=== PATIENT | male | born 1940 | race Caucasian/White ===

== ENCOUNTER 2019-10-28 19:04 | Inpatient (IN) | payer OTHER ==
[~2019-10-28] VITALS: Ht 175.3 cm; Wt 68.9 kg
[2019-10-28 19:30] VITALS: BP_SYST 155
[2019-10-28] MEDS ORDERED: NACL 0.9% 1,000 ML IV ONE (21:02)
[2019-10-28 21:37] LABS: BASOPHILS % (AUTO) 0.6 % (0.0-2.0); EOSINOPHILS # (AUTO) 0.4 K/uL (0.0-0.4); EOSINOPHILS % (AUTO) 8.5 % (0.0-4.0); HEMATOCRIT 36.3 % (36-54); HEMOGLOBIN 12.5 g/dL (14.0-18.0); LYMPHOCYTES # (AUTO) 1.3 K/uL (1.0-5.5); LYMPHOCYTES % (AUTO) 26.6 % (20.5-51.5); MEAN CORPUSCULAR HEMOGLOBIN 32 pg (27-31); MEAN CORPUSCULAR HGB CONC 35 % (32-36); MEAN CORPUSCULAR VOLUME 92 fL (79.0-98.0); MONOCYTES # (AUTO) 0.4 K/uL (0.0-1.0); MONOCYTES % (AUTO) 8.9 % (1.7-9.3); NEUTROPHILS # (AUTO) 2.6 K/uL (1.8-7.7); NEUTROPHILS % (AUTO) 55.4 % (40.0-70.0); RED BLOOD CELL COUNT(AUTO) 3.93 MIL/uL (4.2-6.2); WHITE BLOOD COUNT (AUTO) 4.8 K/uL (4.8-10.8)
[2019-10-28 21:49] LABS: ANION GAP 6 (5-15); CALCIUM 8.9 mg/dL (8.4-11.0); CHLORIDE 106 mmol/L (98-107); GLUCOSE 132 mg/dL (70-99); POTASSIUM 3.1 mmol/L (3.5-5.1); SODIUM SERUM 143 mmol/L (136-145); UREA NITROGEN, BLOOD 28 mg/dL (8-21)
[2019-10-28 22:03] LABS: ALANINE AMINOTRANSFERASE 26 U/L (12-78); ALBUMIN 3.4 g/dL (3.4-4.8); ASPARTATE AMINOTRANSFERASE 41 U/L (10-37); THYROID STIMULATING HORMONE 1.66 uIu/mL (0.36-3.74); TOTAL BILIRUBIN 1.2 mg/dL (0.0-1.0)
[2019-10-28 22:06] LABS: INR 1.2 (0.80-1.20); PROTHROMBIN TIME 11.8 SECS (9.5-12.5)
[2019-10-28 22:07] LABS: PLATELET COUNT (AUTO) 98 K/uL (130-430)
[2019-10-28] MEDS ORDERED: POTASSIUM CHLORIDE 20 MEQ TAB.PRT.SR PO ONE (22:15)
[2019-10-28] MEDS ORDERED: ASPIRIN 81 MG TAB.CHEW PO ONE (22:15)
[2019-10-28 22:58] LABS: BILIRUBIN,URINE NEGATIVE (NEGATIVE); BLOOD, URINE NEGATIVE (NEGATIVE); CLARITY/URINE CLEAR (CLEAR); COLOR,URINE YELLOW (YELLOW); GLUCOSE,URINE NEGATIVE (NEGATIVE); KETONES,URINE NEGATIVE (NEGATIVE); LEUKOCYTE ESTERASE ,URINE NEGATIVE (NEGATIVE); NITRITE, URINE NEGATIVE (NEGATIVE); PH,URINE 6.5 (5.0-8.0); PROTEIN URINE NEGATIVE (NEGATIVE); UROBILINOGEN,URINE 0.2 (0.2-1.0)
[2019-10-28 23:04] LABS: BARBITURATE, URINE NEGATIVE (NEG <=200); BENZODIAZEPINE, URINE NEGATIVE (NEG <=150); CANNABINOID, URINE NEGATIVE (NEG <=50); COCAINE, URINE NEGATIVE (NEG <=150); METHAMPHETAMINES SCREEN,URINE NEGATIVE (NEG <=500); OPIATE, URINE NEGATIVE (NEG <=100); PHENCYCLIDINE SCREEN,URINE NEGATIVE (NEG <=25); URINE AMPHETAMINE NEGATIVE (NEG <=500); URINE METHADONE NEGATIVE (NEG <=200); URINE OXYCODONE SCREEN NEGATIVE (NEG <=100); URINE PROPOXYPHENE SCREEN NEGATIVE (NEG <=300)
[2019-10-28 23:05] LABS: UR TRICYCLIC ANTIDEPRESSANTS POSITIVE (NEG <=300)
[2019-10-28] MEDS ORDERED: CARV3.1246 PO (23:22)
[2019-10-28] MEDS ORDERED: MULT-1117 PO (23:23)
[2019-10-28] MEDS ORDERED: AMLO5TAB4 PO (23:23)
[2019-10-28] MEDS ORDERED: DONE5TAB33 PO (23:24)
[2019-10-28] MEDS ORDERED: ASPI-1153 PO (23:24)
[2019-10-28] MEDS ORDERED: MEMA5TAB PO (23:28)
[2019-10-28] MEDS ORDERED: ATOR40TA68 PO (23:32)
[2019-10-28] MEDS ORDERED: QUET50TA PO (23:33)
[2019-10-28] MEDS ORDERED: METH113C20 TP (23:33)
[2019-10-29 01:14] VITALS: BP_SYST 137
[2019-10-29] MEDS: D5/0.45 NS 1,000 ML IV SCH ×2 (01:54→15:19)
[2019-10-29 09:52] LABS: BASOPHILS % (AUTO) 0.5 % (0.0-2.0); EOSINOPHILS # (AUTO) 0.4 K/uL (0.0-0.4); EOSINOPHILS % (AUTO) 7.8 % (0.0-4.0); HEMATOCRIT 37.3 % (36-54); HEMOGLOBIN 12.8 g/dL (14.0-18.0); LYMPHOCYTES # (AUTO) 1.4 K/uL (1.0-5.5); LYMPHOCYTES % (AUTO) 26.6 % (20.5-51.5); MEAN CORPUSCULAR HEMOGLOBIN 32 pg (27-31); MEAN CORPUSCULAR HGB CONC 34 % (32-36); MEAN CORPUSCULAR VOLUME 92 fL (79.0-98.0); MONOCYTES # (AUTO) 0.6 K/uL (0.0-1.0); MONOCYTES % (AUTO) 11.7 % (1.7-9.3); NEUTROPHILS # (AUTO) 2.9 K/uL (1.8-7.7); NEUTROPHILS % (AUTO) 53.4 % (40.0-70.0); PLATELET COUNT (AUTO) 95 K/uL (130-430); RED BLOOD CELL COUNT(AUTO) 4.04 MIL/uL (4.2-6.2); RED CELL DISTRIBUTION WIDTH 16.1 % (9.0-15.0); WHITE BLOOD COUNT (AUTO) 5.4 K/uL (4.8-10.8)
[2019-10-29 09:54] LABS: ALANINE AMINOTRANSFERASE 26 U/L (12-78); ALBUMIN 3.2 g/dL (3.4-4.8); ANION GAP 4 (5-15); ASPARTATE AMINOTRANSFERASE 47 U/L (10-37); CALCIUM 8.7 mg/dL (8.4-11.0); CHLORIDE 109 mmol/L (98-107); CREATININE 1.03 mg/dL (0.55-1.30); GLUCOSE 115 mg/dL (70-99); POTASSIUM 3.3 mmol/L (3.5-5.1); SODIUM SERUM 145 mmol/L (136-145); THYROID STIMULATING HORMONE 1.92 uIu/mL (0.36-3.74); TOTAL BILIRUBIN 1.2 mg/dL (0.0-1.0); UREA NITROGEN, BLOOD 21 mg/dL (8-21)
[2019-10-29 10:23] LABS: CHOLESTEROL 88 mg/dL (<200); HDL CHOLESTEROL 45 mg/dL (>45); LDL CHOLESTEROL 38 mg/dL (<100); TRIGLYCERIDES 46 mg/dL (30-150)
[2019-10-29] MEDS ORDERED: *LOVENOX 1MG/KG Q12H/PHARMACY XX PRN (12:30)
[2019-10-29] MEDS ORDERED: ENOXAPARIN SODIUM 60 MG/0.6 ML SYRINGE SUBCUT ONE (13:00)
[2019-10-29 16:00] VITALS: BP_SYST 155
[2019-10-29] MEDS ORDERED: POTASSIUM CHLORIDE 20 MEQ TAB.PRT.SR PO ONE (16:15)
[2019-10-29] MEDS: DIPHENHYDRAMINE HCL 25 MG CAPSULE PO PRN (17:02)
[2019-10-29] MEDS: METHYL SALICYLE/MENTHOL 28 GM OINT..GM. TP SCH (18:00)
[2019-10-29 20:14] VITALS: BP_SYST 149
[2019-10-29] MEDS: QUEtiapine FUMARATE 25 MG TABLET PO SCH (20:15)
[2019-10-29] MEDS: ENOXAPARIN SODIUM 60 MG/0.6 ML SYRINGE SUBCUT SCH (20:15)
[2019-10-29] MEDS: CARVEDILOL 3.125 MG TABLET (COREG) PO SCH (20:16)
[2019-10-29] MEDS: PREDNISONE 20 MG TABLET PO SCH (20:33)
[2019-10-29] MEDS ORDERED: LORazepam 2 MG/ML VIAL IVP PRN (21:00)
[2019-10-29] MEDS ORDERED: LORazepam 2 MG/ML VIAL ONE (21:16)
[2019-10-30] MEDS: DIPHENHYDRAMINE HCL 25 MG CAPSULE PO PRN ×3 (00:16→20:50)
[2019-10-30 00:41] VITALS: BP_SYST 155
[2019-10-30 06:56] LABS: CALCIUM 8.7 mg/dL (8.4-11.0); CHLORIDE 106 mmol/L (98-107); CREATININE 0.98 mg/dL (0.55-1.30); GLUCOSE 133 mg/dL (70-99); POTASSIUM 3.4 mmol/L (3.5-5.1); SODIUM SERUM 138 mmol/L (136-145); UREA NITROGEN, BLOOD 17 mg/dL (8-21)
[2019-10-30 06:57] LABS: ANION GAP < 3 (5-15)
[2019-10-30 07:07] LABS: BASOPHILS % (AUTO) 0.5 % (0.0-2.0); EOSINOPHILS % (AUTO) 0.7 % (0.0-4.0); HEMATOCRIT 36.7 % (36-54); HEMOGLOBIN 13.1 g/dL (14.0-18.0); LYMPHOCYTES # (AUTO) 0.9 K/uL (1.0-5.5); LYMPHOCYTES % (AUTO) 17.6 % (20.5-51.5); MEAN CORPUSCULAR HEMOGLOBIN 33 pg (27-31); MEAN CORPUSCULAR HGB CONC 36 % (32-36); MEAN CORPUSCULAR VOLUME 92 fL (79.0-98.0); MONOCYTES # (AUTO) 0.1 K/uL (0.0-1.0); MONOCYTES % (AUTO) 2.7 % (1.7-9.3); NEUTROPHILS % (AUTO) 78.5 % (40.0-70.0); PLATELET COUNT (AUTO) 106 K/uL (130-430); RED BLOOD CELL COUNT(AUTO) 3.99 MIL/uL (4.2-6.2); RED CELL DISTRIBUTION WIDTH 16.2 % (9.0-15.0)
[2019-10-30 07:26] VITALS: BP_SYST 129
[2019-10-30] MEDS: PREDNISONE 20 MG TABLET PO SCH ×3 (09:36→20:51)
[2019-10-30] MEDS: ATORVASTATIN 20 MG TABLET PO SCH (09:36)
[2019-10-30] MEDS: DONEPEZIL HCL 5 MG TABLET (ARICEPT) PO SCH (09:36)
[2019-10-30] MEDS: MULTIVITAMINS TAB 1 TABLET PO SCH (09:36)
[2019-10-30] MEDS: CARVEDILOL 3.125 MG TABLET (COREG) PO SCH ×2 (09:38→20:51)
[2019-10-30] MEDS: ASPIRIN 81 MG TABLET(ECOTRIN) PO SCH (09:39)
[2019-10-30] MEDS: amLODIPine BESYLATE 5 MG TABLET PO SCH (09:39)
[2019-10-30] MEDS: ENOXAPARIN SODIUM 60 MG/0.6 ML SYRINGE SUBCUT SCH ×2 (09:40→20:52)
[2019-10-30] MEDS ORDERED: PRAMOXINE HCL/CALAMINE 180 ML LOTION TP PRN (11:15)
[2019-10-30 12:01] VITALS: BP_SYST 128
[2019-10-30 16:25] VITALS: BP_SYST 145
[2019-10-30] MEDS: METHYL SALICYLE/MENTHOL 28 GM OINT..GM. TP SCH (17:28)
[2019-10-30 20:44] VITALS: BP_SYST 136
[2019-10-30] MEDS: QUEtiapine FUMARATE 25 MG TABLET PO SCH (20:50)
[2019-10-31 00:29] VITALS: BP_SYST 114
[2019-10-31 08:00] VITALS: BP_SYST 133
[2019-10-31] MEDS: ATORVASTATIN 20 MG TABLET PO SCH (08:29)
[2019-10-31] MEDS: MULTIVITAMINS TAB 1 TABLET PO SCH (08:29)
[2019-10-31] MEDS: CARVEDILOL 3.125 MG TABLET (COREG) PO SCH ×3 (08:30→20:52)
[2019-10-31] MEDS: DONEPEZIL HCL 5 MG TABLET (ARICEPT) PO SCH (08:30)
[2019-10-31] MEDS: ASPIRIN 81 MG TABLET(ECOTRIN) PO SCH (08:30)
[2019-10-31] MEDS: amLODIPine BESYLATE 5 MG TABLET PO SCH (08:30)
[2019-10-31] MEDS: PREDNISONE 20 MG TABLET PO SCH ×4 (08:30→20:53)
[2019-10-31] MEDS: ENOXAPARIN SODIUM 60 MG/0.6 ML SYRINGE SUBCUT SCH ×3 (08:31→20:53)
[2019-10-31 12:00] VITALS: BP_SYST 139
[2019-10-31 16:11] VITALS: BP_SYST 144
[2019-10-31] MEDS: METHYL SALICYLE/MENTHOL 28 GM OINT..GM. TP SCH (18:33)
[2019-10-31 20:00] VITALS: BP_SYST 166
[2019-10-31] MEDS: LORazepam 1 MG TABLET PO PRN (20:40)
[2019-10-31] MEDS: QUEtiapine FUMARATE 25 MG TABLET PO SCH ×2 (20:40→20:53)
[2019-10-31 23:46] VITALS: BP_SYST 148
[2019-11-01 08:00] VITALS: BP_SYST 113
[2019-11-01] MEDS: MULTIVITAMINS TAB 1 TABLET PO SCH (08:51)
[2019-11-01] MEDS: amLODIPine BESYLATE 5 MG TABLET PO SCH (08:52)
[2019-11-01] MEDS: ASPIRIN 81 MG TABLET(ECOTRIN) PO SCH (08:52)
[2019-11-01] MEDS: ATORVASTATIN 20 MG TABLET PO SCH (08:53)
[2019-11-01] MEDS: CARVEDILOL 3.125 MG TABLET (COREG) PO SCH ×2 (08:53→20:08)
[2019-11-01] MEDS: PREDNISONE 20 MG TABLET PO SCH ×3 (08:53→20:04)
[2019-11-01] MEDS: DONEPEZIL HCL 5 MG TABLET (ARICEPT) PO SCH (08:53)
[2019-11-01] MEDS: ENOXAPARIN SODIUM 60 MG/0.6 ML SYRINGE SUBCUT SCH ×2 (08:54→20:09)
[2019-11-01 12:00] VITALS: BP_SYST 149
[2019-11-01 15:52] VITALS: BP_SYST 133
[2019-11-01 17:09] LABS: BASOPHILS % (AUTO) 0.2 % (0.0-2.0); EOSINOPHILS % (AUTO) 0.1 % (0.0-4.0); HEMATOCRIT 41.4 % (36-54); HEMOGLOBIN 13.7 g/dL (14.0-18.0); LYMPHOCYTES % (AUTO) 10.2 % (20.5-51.5); MEAN CORPUSCULAR HEMOGLOBIN 31 pg (27-31); MEAN CORPUSCULAR HGB CONC 33 % (32-36); MEAN CORPUSCULAR VOLUME 94 fL (79.0-98.0); MONOCYTES # (AUTO) 0.5 K/uL (0.0-1.0); MONOCYTES % (AUTO) 5.1 % (1.7-9.3); NEUTROPHILS # (AUTO) 8.2 K/uL (1.8-7.7); NEUTROPHILS % (AUTO) 84.4 % (40.0-70.0); PLATELET COUNT (AUTO) 129 K/uL (130-430); RED CELL DISTRIBUTION WIDTH 16.3 % (9.0-15.0); WHITE BLOOD COUNT (AUTO) 9.7 K/uL (4.8-10.8)
[2019-11-01 17:19] LABS: ANION GAP 7 (5-15); CALCIUM 9.2 mg/dL (8.4-11.0); CHLORIDE 107 mmol/L (98-107); CREATININE 1.22 mg/dL (0.55-1.30); GLUCOSE 128 mg/dL (70-99); SODIUM SERUM 144 mmol/L (136-145); UREA NITROGEN, BLOOD 45 mg/dL (8-21)
[2019-11-01] MEDS: METHYL SALICYLE/MENTHOL 28 GM OINT..GM. TP SCH (17:24)
[2019-11-01 19:50] VITALS: BP_SYST 130
[2019-11-01] MEDS: QUEtiapine FUMARATE 25 MG TABLET PO SCH (20:04)
[2019-11-01] MEDS: DIPHENHYDRAMINE HCL 25 MG CAPSULE PO PRN (20:04)
[2019-11-02 08:00] VITALS: BP_SYST 156
[2019-11-02] MEDS: CARVEDILOL 3.125 MG TABLET (COREG) PO SCH ×2 (09:00→23:32)
[2019-11-02] MEDS: amLODIPine BESYLATE 5 MG TABLET PO SCH (09:00)
[2019-11-02 12:27] VITALS: BP_SYST 120
[2019-11-02] MEDS: ASPIRIN 81 MG TABLET(ECOTRIN) PO SCH (14:00)
[2019-11-02] MEDS: DIPHENHYDRAMINE HCL 25 MG CAPSULE PO PRN (14:00)
[2019-11-02] MEDS: DONEPEZIL HCL 5 MG TABLET (ARICEPT) PO SCH (14:00)
[2019-11-02] MEDS: PREDNISONE 20 MG TABLET PO SCH ×3 (14:00→23:31)
[2019-11-02] MEDS: MULTIVITAMINS TAB 1 TABLET PO SCH (14:00)
[2019-11-02] MEDS: ATORVASTATIN 20 MG TABLET PO SCH (14:01)
[2019-11-02] MEDS: ENOXAPARIN SODIUM 60 MG/0.6 ML SYRINGE SUBCUT SCH ×2 (14:02→23:38)
[2019-11-02 16:08] VITALS: BP_SYST 139
[2019-11-02] MEDS: METHYL SALICYLE/MENTHOL 28 GM OINT..GM. TP SCH (18:00)
[2019-11-02 20:03] VITALS: BP_SYST 145
[2019-11-02] MEDS: QUEtiapine FUMARATE 25 MG TABLET PO SCH (23:32)
[2019-11-02] MEDS: LORazepam 1 MG TABLET PO PRN (23:32)
[2019-11-03 01:00] VITALS: BP_SYST 126
[2019-11-03 08:00] VITALS: BP_SYST 141
[2019-11-03] MEDS: DONEPEZIL HCL 5 MG TABLET (ARICEPT) PO SCH (09:23)
[2019-11-03] MEDS: ATORVASTATIN 20 MG TABLET PO SCH (09:23)
[2019-11-03] MEDS: MULTIVITAMINS TAB 1 TABLET PO SCH (09:23)
[2019-11-03] MEDS: PREDNISONE 20 MG TABLET PO SCH ×2 (09:24→17:09)
[2019-11-03] MEDS: amLODIPine BESYLATE 5 MG TABLET PO SCH (09:24)
[2019-11-03] MEDS: ASPIRIN 81 MG TABLET(ECOTRIN) PO SCH (09:24)
[2019-11-03] MEDS: CARVEDILOL 3.125 MG TABLET (COREG) PO SCH (09:25)
[2019-11-03] MEDS: ENOXAPARIN SODIUM 60 MG/0.6 ML SYRINGE SUBCUT SCH (09:29)
[2019-11-03 16:26] VITALS: BP_SYST 126
[2019-11-03 16:54] VITALS: BP_SYST 102
== END 2019-11-03 18:10 | DRG 282 ==
LOC: SED 19:04 → STU 23:36
PROVIDERS: ADMIT Internal Medicine; ATTEND Internal Medicine
DX: I21.4 Non-ST elevation (NSTEMI) myocardial infarction (principal); F25.9 Schizoaffective disorder, unspecified; E78.5 Hyperlipidemia, unspecified; F03.90 Unspecified dementia, unspecified severity, without behavioral disturbance, psychotic disturbance, mood disturbance, and anxiety; E87.6 Hypokalemia; F29 Unspecified psychosis not due to a substance or known physiological condition; I12.9 Hypertensive chronic kidney disease with stage 1 through stage 4 chronic kidney disease, or unspecified chronic kidney disease; N18.1 Chronic kidney disease, stage 1; Z79.899 Other long term (current) drug therapy; Z88.6 Allergy status to analgesic agent; Z79.82 Long term (current) use of aspirin; R40.2243 Coma scale, best verbal response, confused conversation, at hospital admission; R40.2353 Coma scale, best motor response, localizes pain, at hospital admission
CPT/HCPCS: 36415; 71045; 80048; 80053; 80061; 80307; 81003; 84443-TC; 84484; 85025; 85610-TC; 85730-TC; 87081; 93005; 96360; 96361; 99285; G0378; J1650; J2060; J7030; J7512; Q0163

== ENCOUNTER 2019-11-23 01:09 | Inpatient (IN) | payer OTHER ==
[~2019-11-23] VITALS: Ht 182.9 cm; Wt 66.2 kg
[~2019-11-23 01:09] MED LIST: AMLO5TAB4 PO; ASPI-1153 PO; ATOR40TA68 PO; CARV3.1246 PO; DONE5TAB33 PO; METH113C20 TP; MULT-1117 PO; QUET50TA PO
[2019-11-23 01:15] VITALS: BP_SYST 151
[2019-11-23] MEDS ORDERED: NS 500 ML IV ONE (01:15)
--- NOTE | 2019-11-23 01:20 | NUR ---
BIB [facility]B Patient triaged and placed in [address] W/ EMS GURNEY. VSS and patient appears in no acute distress at this time. Accompanied by EMT , awaiting available bed, and MD notified of need for MSE.
--- NOTE | 2019-11-23 01:25 | NUR ---
ER examining patient in replaced by [facility].
--- NOTE | 2019-11-23 01:25 | NUR ---
Pt BIB BLS for medical clearance. Pt comes from [facility] with c/o pt being found on floor. Pt has history of dementia and wandering. Pt denies nausea, vomiting, SOB, and fever. Will continue to monitor.
--- NOTE | 2019-11-23 01:40 | NUR ---
pt moved to ER bed 5,report given to Bobby YEH
[2019-11-23 02:26] LABS: ANION GAP 11 (5-15); CALCIUM 8.1 mg/dL (8.4-11.0); CHLORIDE 101 mmol/L (98-107); CREATININE 0.97 mg/dL (0.55-1.30); GLUCOSE 101 mg/dL (70-99); SODIUM SERUM 141 mmol/L (136-145); UREA NITROGEN, BLOOD 13 mg/dL (8-21)
[2019-11-23 02:29] LABS: BASOPHILS % (AUTO) 0.5 % (0.0-2.0); EOSINOPHILS # (AUTO) 0.5 K/uL (0.0-0.4); EOSINOPHILS % (AUTO) 9.7 % (0.0-4.0); HEMATOCRIT 33.4 % (36-54); HEMOGLOBIN 11.3 g/dL (14.0-18.0); INR 1.2 (0.80-1.20); LYMPHOCYTES # (AUTO) 0.9 K/uL (1.0-5.5); LYMPHOCYTES % (AUTO) 16.8 % (20.5-51.5); MEAN CORPUSCULAR HEMOGLOBIN 32 pg (27-31); MEAN CORPUSCULAR HGB CONC 34 % (32-36); MEAN CORPUSCULAR VOLUME 94 fL (79.0-98.0); MONOCYTES # (AUTO) 0.8 K/uL (0.0-1.0); MONOCYTES % (AUTO) 14.5 % (1.7-9.3); NEUTROPHILS # (AUTO) 3.2 K/uL (1.8-7.7); NEUTROPHILS % (AUTO) 58.5 % (40.0-70.0); PLATELET COUNT (AUTO) 115 K/uL (130-430); PROTHROMBIN TIME 11.6 SECS (9.5-12.5); RED BLOOD CELL COUNT(AUTO) 3.54 MIL/uL (4.2-6.2); RED CELL DISTRIBUTION WIDTH 15.2 % (9.0-15.0); WHITE BLOOD COUNT (AUTO) 5.5 K/uL (4.8-10.8)
[2019-11-23 02:32] LABS: ALANINE AMINOTRANSFERASE 24 U/L (12-78); ASPARTATE AMINOTRANSFERASE 21 U/L (10-37); TOTAL BILIRUBIN 0.9 mg/dL (0.0-1.0)
[2019-11-23 02:34] LABS: ACETAMINOPHEN < 1 ug/mL (1-30); ALCOHOL, BLOOD < 3 mg/dL (<10); POTASSIUM 2.9 mmol/L (3.5-5.1)
[2019-11-23] MEDS ORDERED: NACL 0.9% 1,000 ML IV ONE (03:00)
[2019-11-23] MEDS ORDERED: ASPIRIN 81 MG TAB.CHEW PO ONE (03:00)
[2019-11-23] MEDS ORDERED: POTASSIUM CHLORIDE 20 MEQ TAB.PRT.SR PO ONE (03:30)
--- NOTE | 2019-11-23 03:30 | NUR ---
# 20 gauge angiocath placed to right wrist. Use of asceptic technique. Opsite placed over site. Blood return noted. Flushed with 10 cc of normal saline. No evidence of infiltration noted. Patient tolerated well.
--- NOTE | 2019-11-23 04:00 | NUR ---
Urine sample collected via in and out catheter. Pt tolerated well.
[2019-11-23 04:21] LABS: BILIRUBIN,URINE NEGATIVE (NEGATIVE); BLOOD, URINE NEGATIVE (NEGATIVE); CLARITY/URINE CLEAR (CLEAR); COLOR,URINE YELLOW (YELLOW); GLUCOSE,URINE NEGATIVE (NEGATIVE); KETONES,URINE NEGATIVE (NEGATIVE); LEUKOCYTE ESTERASE ,URINE NEGATIVE (NEGATIVE); NITRITE, URINE NEGATIVE (NEGATIVE); PROTEIN URINE NEGATIVE (NEGATIVE)
[2019-11-23 04:54] LABS: BARBITURATE, URINE NEGATIVE (NEG <=200); BENZODIAZEPINE, URINE POSITIVE (NEG <=150); CANNABINOID, URINE NEGATIVE (NEG <=50); COCAINE, URINE NEGATIVE (NEG <=150); METHAMPHETAMINES SCREEN,URINE NEGATIVE (NEG <=500); OPIATE, URINE NEGATIVE (NEG <=100); PHENCYCLIDINE SCREEN,URINE NEGATIVE (NEG <=25); UR TRICYCLIC ANTIDEPRESSANTS POSITIVE (NEG <=300); URINE AMPHETAMINE NEGATIVE (NEG <=500); URINE METHADONE NEGATIVE (NEG <=200); URINE OXYCODONE SCREEN NEGATIVE (NEG <=100); URINE PROPOXYPHENE SCREEN NEGATIVE (NEG <=300)
--- NOTE | 2019-11-23 05:16 | NUR ---
Patient resting quietly. No acute distress noted. Vital signs within normal range.
--- NOTE | 2019-11-23 07:30 | NUR ---
Care endorsed to RAO Jack.
--- NOTE | 2019-11-23 08:20 | NUR ---
Patient will be admitted to care of dr. Scott. Admitted to Telemetry unit. Will go to room 105B. Belongings list completed. Complete and up to date summary report printed. SBAR report to be given at bedside with opportunity for questions. bedside report given to Abigail YEH.
--- NOTE | 2019-11-23 08:33 | NUR ---
Admission Note Received patient from ER with diagnosis of elevated troponin. Initial Plan of Care discussed-patient is confuse. Oriented to room, call light, pain management and safety.
[2019-11-23 08:35] VITALS: BP_SYST 145
--- NOTE | 2019-11-23 08:40 | NUR ---
nOTES- RECEIVED FROM ER, PT CONFUSED AND UNCOOPERATIVE. NO ACUTE DISTRESS NOTED. PT DOES NOT WANT TO RESPONSE WHEN TRYING TO TALK TO. nO OPEN WOUNDS. nOTED SOME REDNESS LOOKS FROM SCRATCHING TO BOTH LOWER AND UPPER EXTREMITIES. WILL CONTINUE TO MONITOR.
--- NOTE | 2019-11-23 08:50 | NUR ---
Psych consult called: for Dr. Cardenas, regarding dementia, ordered by Dr. Scott, spoke with Gina at exchange. Face sheet faxed to [phone]
--- NOTE | 2019-11-23 10:00 | NUR ---
Notes- Resting at this time. IVF infusing well.
--- NOTE | 2019-11-23 10:00 | NUR ---
MD ROUNDS SEEN BY DR. HAN AND AWARE OF TROPONIN RESULTS.
--- NOTE | 2019-11-23 11:11 | NUR ---
Notes- Pt confused trying to get out of bed. pt voided all over the floor. cleaned pt and put him back to bed.
[2019-11-23 11:24] VITALS: BP_SYST 133
[2019-11-23] MEDS ORDERED: POTASSIUM CHLORIDE 20 MEQ/PKT PACKET PO ONE (12:00)
--- NOTE | 2019-11-23 12:44 | NUR ---
Report given to Roula for continuity of care.
--- NOTE | 2019-11-23 13:00 | NUR ---
ASSUMPTION OF CARE: RECEIVED PT AWAKE, CONFUSED, SENEGALESE SPEAKING, VSS, AFEBRILE, NO C/O PAIN, ORIENTED TO CALL LIGHT, SITTER AT BEDSIDE, WILL CONT' WITH POC.
--- NOTE | 2019-11-23 18:30 | NUR ---
END OF SHIFT: PT CONFUSED, COMBATIVE, DOES NOT FOLLOW COMMAND, REFUSES TO REMAIN IN BED AFTER REMOVING FORK FROM FOOD TRAY AND ATTEMPTING TO LEAVE THE ROOM, SECURITY CALLED TO DEFUSE THE SITUATION AND CALM PT DOWN. PT SITTING ALONG BEDSIDE, NO INJURY SUSTAINED, WILL CONT' TO MONITOR, WILL ENDORSE TO ELEMENTARY INSTRUCTIONAL COACH NURSE.
--- NOTE | 2019-11-23 19:18 | NUR ---
MD SHERIN DUFF MD REGARDING CRITICAL LAB VALUES, SPOKE WITH SHERI
--- NOTE | 2019-11-23 19:30 | NUR ---
OPENING NOTES Received patient standing and pacing around room, no signs of acute respiratory distress, Azeri speaking. Reoriented patient to room and plan of care in Azeri, patient is still confused and visibly anxious. No IV site available and patient refuses attempt. Call light within reach, bed at lowest position. Patient is sitting by bedside watching television. Will continue to monitor.
[2019-11-23 20:00] VITALS: BP_SYST 145
--- NOTE | 2019-11-23 20:30 | NUR ---
Patient has agreed to put on monitoring and evaluation advisor on after explaining and reorienting patient to importance of the monitor and patient's current condition. Safety precautions in place. Will continue to monitor.
[2019-11-23] MEDS: QUEtiapine FUMARATE 25 MG TABLET PO SCH (21:04)
[2019-11-23] MEDS: CARVEDILOL 3.125 MG TABLET (COREG) PO SCH (21:05)
--- NOTE | 2019-11-23 22:10 | NUR ---
Patient now in bed, refuses to keep leads on and change to hospital gown after explaining. No respiratory distress observed. Call light within reach, bed alarm on, and bed at lowest position. Will continue to monitor
[2019-11-24] VITALS: BP_SYST 139
--- NOTE | 2019-11-24 00:28 | NUR ---
Patient is asleep, rise and fall of chest noted. Patient cooperated for midnight vitals after explaining and reorienting patient. Call light within reach, bed alarm on, bed at lowest position. Will continue to monitor.
--- NOTE | 2019-11-24 02:14 | NUR ---
Patient is resting, no signs of acute respiratory distress noted. Patient had tried to get out of bed, reoriented patient, and tried to put leads back on, but patient is agitated and tries to hit. Safety precautions in place. Will continue to monitor.
[2019-11-24 02:47] LABS: ALANINE AMINOTRANSFERASE 17 U/L (12-78); ALBUMIN 2.7 g/dL (3.4-4.8); ANION GAP 7 (5-15); ASPARTATE AMINOTRANSFERASE 18 U/L (10-37); CALCIUM 8.1 mg/dL (8.4-11.0); CHLORIDE 106 mmol/L (98-107); CREATININE 0.89 mg/dL (0.55-1.30); GLUCOSE 96 mg/dL (70-99); POTASSIUM 3.3 mmol/L (3.5-5.1); SODIUM SERUM 142 mmol/L (136-145); TOTAL BILIRUBIN 1.2 mg/dL (0.0-1.0); UREA NITROGEN, BLOOD 13 mg/dL (8-21)
--- NOTE | 2019-11-24 02:55 | NUR ---
CONSULTATION PAGED/CALLED Reason for Consultation: ELEV TROPONIN Person Who was Notified: DR. HALL IS ALREADY AWARE Consulting Physician: DR. HAN Ordering Physician: DR. SHUKLA
--- NOTE | 2019-11-24 03:08 | NUR ---
PAGED PAGED DR. HAN REGARDING CRITICAL LAB VALUES
--- NOTE | 2019-11-24 03:10 | NUR ---
TROPONIN OF 0.788, SPOKE TO DR. HAN. DR. HAN WILL CANCEL THE NEXT TROPONIN AND NO OTHER NEW ORDERS.
--- NOTE | 2019-11-24 05:30 | NUR ---
Patient is having EKG done, tolerating well. Patient is resting. No signs of distress. Will continue to monitor.
--- NOTE | 2019-11-24 06:28 | NUR ---
CLOSING NOTES Patient is resting, eyes closed. No signs of distress at this time. Call light on, bed alarm on, and bed at lowest position. All needs met throughout shift. Will endorse care to oncoming shift.
--- NOTE | 2019-11-24 06:31 | NUR ---
PAGED PAGED AT [phone].
--- NOTE | 2019-11-24 06:40 | NUR ---
SPOKE TO DR. SHUKLA, NEW ORDERS FOR POTASSIUM 20 mEq packet one time, and troponin every 8 hours after explaining that potassium is 3.3 and troponin is 0.788 and have already spoken to Dr. Blanton.
[2019-11-24] MEDS ORDERED: POTASSIUM CHLORIDE 20 MEQ/PKT PACKET PO ONE (06:45)
[2019-11-24 08:05] VITALS: BP_SYST 146
--- NOTE | 2019-11-24 08:25 | NUR ---
Routine Patient resting quietly in bed with no distress noted. Scheduled medications given per order. Patient stable.
[2019-11-24] MEDS: CARVEDILOL 3.125 MG TABLET (COREG) PO SCH ×2 (08:35→23:15)
[2019-11-24] MEDS: DONEPEZIL HCL 5 MG TABLET (ARICEPT) PO SCH (08:35)
[2019-11-24] MEDS: MULTIVITAMINS TAB 1 TABLET PO SCH (08:35)
--- NOTE | 2019-11-24 08:35 | NUR ---
Routine Patient resting in bed with no distress noted. Scheduled medications given per order. Patient stable.
[2019-11-24] MEDS: ATORVASTATIN 20 MG TABLET PO SCH (08:36)
[2019-11-24] MEDS: ASPIRIN 81 MG TABLET(ECOTRIN) PO SCH (08:36)
--- NOTE | 2019-11-24 10:30 | NUR ---
Nutrition Update Eduardo Scale 18 noted. Pt admitted for elevated troponin. Diet: 2 gm Na BMI: 19.8 kg/m2 RD to follow per nutrition care standards.
--- NOTE | 2019-11-24 10:56 | NUR ---
MD DUFF PAGEKana REYNOSO AT [phone] SPOKE WITH MENA.
--- NOTE | 2019-11-24 11:29 | NUR ---
2ND PAGED OUT TO PAGED AT [phone] SPOKE WITH WILLOW.
--- NOTE | 2019-11-24 12:00 | NUR ---
Routine Patient ambulating in hallway.
--- NOTE | 2019-11-24 12:58 | NUR ---
3RD PAGE OUT TO PAGED Kana GREENBERG AT [phone] SPOKE WITH EXCHANGE.
--- NOTE | 2019-11-24 14:30 | NUR ---
Routine Patient resting quietly in bed with no complaint of pain. Patient stable.
[2019-11-24] MEDS ORDERED: POTASSIUM CHLORIDE 20 MEQ TAB.PRT.SR PO ONE (15:30)
--- NOTE | 2019-11-24 16:15 | NUR ---
Routine Patient asleep.
--- NOTE | 2019-11-24 18:00 | NUR ---
Routine Ordered medication given (Kdur). Patient stable at this time.
[2019-11-24] MEDS: QUEtiapine FUMARATE 25 MG TABLET PO SCH (23:10)
--- NOTE | 2019-11-25 03:09 | NUR ---
PT AT NURSES STATION,STANDING AND LISTENING. NOTED THAT PT WAS FOLLOWING THIS NURSE TO PT ROOMS DURING REPORT. GOOD GAIT, IS EMACIATED. HE DID NOT EAT ANYTHING BUT 2 MILKS.
[2019-11-25 07:47] VITALS: BP_SYST 123
--- NOTE | 2019-11-25 07:54 | NUR ---
opening notes, received pt in bed, pt is aaox1, georgian speaking, no c/o pain, no sob, safety precaution in place. call light in reach. bed in low position. will cont to monitor.
[2019-11-25] MEDS: CARVEDILOL 3.125 MG TABLET (COREG) PO SCH ×2 (08:55→20:15)
[2019-11-25] MEDS: ATORVASTATIN 20 MG TABLET PO SCH (08:56)
[2019-11-25] MEDS: DONEPEZIL HCL 5 MG TABLET (ARICEPT) PO SCH (08:56)
[2019-11-25] MEDS: MULTIVITAMINS TAB 1 TABLET PO SCH (08:56)
[2019-11-25] MEDS: amLODIPine BESYLATE 5 MG TABLET PO SCH (08:56)
[2019-11-25] MEDS: ASPIRIN 81 MG TABLET(ECOTRIN) PO SCH (08:56)
--- NOTE | 2019-11-25 09:01 | NUR ---
PT GIVEN AM MEDS, PT TOOK PILLS WHOLE AND ALL AT THE SAME TIME. PT NOW SITTNG ON THE CHAIR. WILL CONT TO MONITOR.
[2019-11-25 12:34] VITALS: BP_SYST 125
[2019-11-25 16:27] VITALS: BP_SYST 127
[2019-11-25] MEDS: METHYL SALICYLE/MENTHOL 28 GM OINT..GM. TP SCH (18:00)
--- NOTE | 2019-11-25 19:45 | NUR ---
NOTES PATIENT AMBULATING IN THE HALLWAY, REDIRECTED TO HIS ROOM BUT REFUSING AT THIS TIME, NO COMPLAINTS. DENIES ANY PAIN AND DISCOMFORT AT THIS TIME. WILL CONTINUE TO MONITOR.
[2019-11-25] MEDS: QUEtiapine FUMARATE 25 MG TABLET PO SCH (20:13)
--- NOTE | 2019-11-25 21:13 | NUR ---
MEDICATION PATIENT BACK IN HIS BED, DUE MEDICATIONS GIVEN SCHEDULED AND TOLERATED WELL. WILL CONTINUE TO MONITOR.
--- NOTE | 2019-11-26 00:12 | NUR ---
PATIENT RESTING: Patient resting quietly. No acute distress noted. Vital signs within normal range.
--- NOTE | 2019-11-26 02:14 | NUR ---
ROUNDS PATIENT ASLEEP AT THIS TIME, NO SOB NOR PAIN AND DISCOMFORT NOTED. WILL CONTINUE TO MONITOR.
--- NOTE | 2019-11-26 04:15 | NUR ---
PATIENT RESTING: Patient resting quietly. No acute distress noted. Vital signs within normal range.
--- NOTE | 2019-11-26 06:50 | NUR ---
CLOSING NOTES PATIENT RESTING COMFORTABLY IN BED, VITALS STABLE, NO SIGNS OF ANY PAIN AND DISCOMFORT NOTED. ALL NEEDS ATTENDED TO. CALL LIGHT PLACED WITHIN REACH.
[2019-11-26 08:42] VITALS: BP_SYST 112
[2019-11-26] MEDS: DONEPEZIL HCL 5 MG TABLET (ARICEPT) PO SCH (08:50)
[2019-11-26] MEDS: MULTIVITAMINS TAB 1 TABLET PO SCH (08:50)
[2019-11-26] MEDS: ASPIRIN 81 MG TABLET(ECOTRIN) PO SCH (08:51)
[2019-11-26] MEDS: amLODIPine BESYLATE 5 MG TABLET PO SCH (08:51)
[2019-11-26] MEDS: CARVEDILOL 3.125 MG TABLET (COREG) PO SCH (08:51)
[2019-11-26] MEDS: ATORVASTATIN 20 MG TABLET PO SCH (08:52)
--- NOTE | 2019-11-26 09:00 | NUR ---
requested pt to have him connected to the tele monitor. pt agreed, informed tele monitor that i wi leave it on until the patient removes it, pt has been known to refuse can line operator.
--- NOTE | 2019-11-26 09:15 | NUR ---
pt got out of bed , pt removed his telemonitor and started walking in the hallway.
--- NOTE | 2019-11-26 15:14 | NUR ---
DC PLANNING: CM FAXED CLINICAL PACKET TO [facility] @ [address] . SPOKE WITH MAME (DISPATCHER CHIEF COAL SLURRY), PATIENT IS ACCEPTED BACK AND ROOM NUMBER IS [id number]. TRANSPORTATION AUTHORIZATION HAS BEEN OBTAINED FROM THE [facility]. SPOKE WITH ABHAY (DC TRIMMER MACHINE OPERATOR AT THE [facility]) @ . TRANSPORTATION AUTH IS [id number] CAN USE [facility] @ Addendum: 11/26/19 at 1531 by Annmarie Ron RN PATIENT'S NURSE MADE AWARE OF ROOM AT [facility]. TRANSPORTATION HAS BEEN PLACED ON WILL CALL WITH [facility] @ . SPOKE WITH JAVAN (DISPATCH).
--- NOTE | 2019-11-26 16:49 | NUR ---
dr ugarte okayed to dc pt today.
[2019-11-26 17:56] VITALS: BP_SYST 119
[2019-11-26] MEDS: METHYL SALICYLE/MENTHOL 28 GM OINT..GM. TP SCH (18:00)
--- NOTE | 2019-11-26 18:00 | NUR ---
ASKED PT IF I CAN CHANGE HIS PANTS. PATIENT REFUSED.
[2019-11-26 18:10] VITALS: BP_SYST 119
--- NOTE | 2019-11-26 18:21 | NUR ---
[facility] CALLED SPOKE WITH MARY FOR TRANSPORT SHE SAID THERE IS NO AVAIL. AMBULANCE TO TAKE THIS PT.
--- NOTE | 2019-11-26 18:27 | NUR ---
[facility] CALLED [facility] FOR CONTRACTING ENGINEER SPOKE WITH ALEKSANDAR BEEBE [phone]
--- NOTE | 2019-11-26 19:09 | NUR ---
SBAR REPORT GIVEN TO RAO SANTANA.
--- NOTE | 2019-11-26 19:52 | NUR ---
PT TRANSFERRED Report given by kera YEH to [facility]. Transfer packet with Transfer Orders and Medication Reconciliation form given to EMT with report. Exitcare provided. [facility] ID band removed, replaced with ID band with pt's name and . IV catheter removed, intact and dressing applied, no active bleeding. All belongings sent with patient. Patient left floor via gurney escorted by EMT in no distress.
== END 2019-11-26 20:00 | DRG 281 ==
LOC: SED 01:09 → STU 07:17
PROVIDERS: ADMIT Internal Medicine; ATTEND Internal Medicine
DX: I21.A1 Myocardial infarction type 2 (principal); G93.40 Encephalopathy, unspecified; E44.0 Moderate protein-calorie malnutrition; E78.5 Hyperlipidemia, unspecified; F02.80 Dementia in other diseases classified elsewhere, unspecified severity, without behavioral disturbance, psychotic disturbance, mood disturbance, and anxiety; G30.9 Alzheimer's disease, unspecified; I10 Essential (primary) hypertension; I48.91 Unspecified atrial fibrillation; E87.6 Hypokalemia; Z86.73 Personal history of transient ischemic attack (TIA), and cerebral infarction without residual deficits; Z88.5 Allergy status to narcotic agent; Z79.899 Other long term (current) drug therapy; Z79.82 Long term (current) use of aspirin
CPT/HCPCS: 36415; 70450-TC; 71045; 80053; 80307; 81003; 83605; 84484; 85025; 85610-TC; 85730-TC; 87040-TC; 87081; 87086; 93005; 93306; 99285; G0378; G0480; G0481; G0482